=== PATIENT | male | born 1965 | race Hispanic/Latino ===

== ENCOUNTER → 2019-09-17 | Day surgery (SDC) | payer MEDICARE ==
[~2019-09-17] MED LIST: AMOXICILLIN500 MG PO; CLONIDINE HCL0.3 MG PO; EPHEDRINE SULFATE INJ 50 MG/ML VIAL ONE; FUROSEMIDE40 MG PO; FUROSEMIDE40 MG/4 ML PO; GABAPENTIN100 MG PO; LEVEMIR100 UNIT/1 SQ; LIDOCAINE HCL 2% LOCAL INJ 5 ML SDV VIAL INJ ONE; NOVOLOG100 UNIT/1 SQ; PRAVASTATIN SOD20 MG PO; PROPOFOL IV EMULSION 10 MG/ML 20 ML VIAL ONE; RENA-VITE TABL0.8 MG PO; RENVELA PO; SODIUM CHLORIDE 0.9% 500ML 500 ML ONE
[2019-09-17 10:28] LABS: BASOPHILS # (AUTO) 0.1 (0.0-0.1); BASOPHILS % 1.2 % (0.0-1.0); EOSINOPHILS # (AUTO) 0.2 (0.0-0.4); EOSINOPHILS % 1.8 % (0.0-6.0); HEMATOCRIT 37.5 % (38.2-49.6); HEMOGLOBIN 11.5 g/dL (14.0-18.0); LYMPHOCYTES # (AUTO) 1.4 (1.0-3.2); LYMPHOCYTES % 12.9 % (18.0-39.1); MEAN CORPUSCULAR HEMOGLOBIN 29.9 pg (28-32); MEAN CORPUSCULAR HGB CONC 30.7 g/dL (31-35); MEAN CORPUSCULAR VOLUME 97.7 fL (81-99); MONOCYTES # (AUTO) 0.6 (0.2-0.8); MONOCYTES % 5.1 % (4.4-11.3); NEUTROPHILS # (AUTO) 8.7 (2.1-6.9); NEUTROPHILS % 78.6 % (38.7-80.0); PLATELET COUNT 313 x10e3/uL (140-360); RED BLOOD COUNT 3.84 x10e6/uL (4.3-5.7); RED CELL DISTRIBUTION WIDTH 13.6 % (11.7-14.4)
[2019-09-17 10:44] LABS: ANION GAP 18.8 mmol/L (8-16); CALCIUM 9.8 mg/dL (8.4-10.2); CREATININE, SERUM 7.78 mg/dL (0.72-1.25); POTASSIUM 4.8 mmol/L (3.5-5.1)
[2019-09-17 10:51] LABS: INR 1.11; PROTHROMBIN TIME 14.9 seconds (11.9-14.5)
[2019-09-17 12:25] VITALS: BP 129/75
== END | disposition home or self-care (01) ==
LOC: OR 08:05
PROVIDERS: ATTEND Internal Medicine Gastroenterology
DX: Z12.11 Encounter for screening for malignant neoplasm of colon (principal); Z86.010 Personal history of colon polyps; K59.09 Other constipation; K64.8 Other hemorrhoids; K21.9 Gastro-esophageal reflux disease without esophagitis; E11.22 Type 2 diabetes mellitus with diabetic chronic kidney disease; I12.0 Hypertensive chronic kidney disease with stage 5 chronic kidney disease or end stage renal disease; N18.6 End stage renal disease; G89.29 Other chronic pain; M19.90 Unspecified osteoarthritis, unspecified site; E78.5 Hyperlipidemia, unspecified; N20.0 Calculus of kidney; Z88.6 Allergy status to analgesic agent; Z01.810 Encounter for preprocedural cardiovascular examination; Z01.812 Encounter for preprocedural laboratory examination; Z11.59 Encounter for screening for other viral diseases; Z79.4 Long term (current) use of insulin; Z79.82 Long term (current) use of aspirin; Z99.2 Dependence on renal dialysis; Z87.891 Personal history of nicotine dependence
CPT/HCPCS: 36415; 80048; 82948; 85025; 85610; 85730; 93005; G0105; J2001; J2704; J7040; U0002; 45378

== ENCOUNTER 2020-04-09 09:16 | Outpatient (RCR) | payer MEDICARE | END 2020-04-26 | LOC: WCC 09:16 | PROVIDERS: ATTEND Family Medicine Adult Medicine | DX: E11.29 Type 2 diabetes mellitus with other diabetic kidney complication (principal); E11.39 Type 2 diabetes mellitus with other diabetic ophthalmic complication; E11.65 Type 2 diabetes mellitus with hyperglycemia; H91.21 Sudden idiopathic hearing loss, right ear; H54.415A Blindness right eye category 5, normal vision left eye; I70.203 Unspecified atherosclerosis of native arteries of extremities, bilateral legs; I87.2 Venous insufficiency (chronic) (peripheral); G99.0 Autonomic neuropathy in diseases classified elsewhere; N18.6 End stage renal disease; I10 Essential (primary) hypertension; E78.2 Mixed hyperlipidemia; Z01.810 Encounter for preprocedural cardiovascular examination ==

== ENCOUNTER → 2020-04-09 | Outpatient (CLI) | payer MEDICARE ==
[~2020-04-09] MED LIST changes: -EPHEDRINE SULFATE INJ 50 MG/ML VIAL ONE; -LIDOCAINE HCL 2% LOCAL INJ 5 ML SDV VIAL INJ ONE; -PROPOFOL IV EMULSION 10 MG/ML 20 ML VIAL ONE; -SODIUM CHLORIDE 0.9% 500ML 500 ML ONE
== END ==
LOC: RAD 12:38
PROVIDERS: ATTEND Family Medicine Adult Medicine
DX: Z01.810 Encounter for preprocedural cardiovascular examination (principal)
CPT/HCPCS: 71046; 93005; 93306

== ENCOUNTER 2020-04-28 16:15 | Outpatient (RCR) | payer MEDICARE | END 2020-05-27 | LOC: WCC 16:15 | PROVIDERS: ATTEND Family Medicine Adult Medicine | DX: E11.29 Type 2 diabetes mellitus with other diabetic kidney complication (principal); E11.39 Type 2 diabetes mellitus with other diabetic ophthalmic complication; E11.65 Type 2 diabetes mellitus with hyperglycemia; I87.2 Venous insufficiency (chronic) (peripheral); I70.203 Unspecified atherosclerosis of native arteries of extremities, bilateral legs; G99.0 Autonomic neuropathy in diseases classified elsewhere; N18.6 End stage renal disease; I10 Essential (primary) hypertension; H54.415A Blindness right eye category 5, normal vision left eye; H91.21 Sudden idiopathic hearing loss, right ear; E78.2 Mixed hyperlipidemia; Z01.810 Encounter for preprocedural cardiovascular examination ==

== ENCOUNTER → 2022-08-16 | Day surgery (SDC) | payer MEDICARE, OTHER ==
[~2022-08-16] MED LIST changes: +AURYXIA210 MG PO; +BUPIVACAINE HCL 0.5% INJ 30 ML VIAL INJ ONE; +CEFAZOLIN SODIUM 2 GM ONE; +DIALYVITE 800-1 EACH PO; +EPHEDRINE SULFATE INJ 50 MG/ML VIAL ONE; +FENTANYL CITRATE/PF 100MCG/2 ML INJ ONE; +LIDOCAINE HCL 2% LOCAL INJ 5 ML SDV VIAL INJ ONE; +MIDODRINE HCL10 MG PO; +OMEPRAZOLE PO; +ONDANSETRON HCL INJ 2MG/ML 2ML 2 MG/ML VIAL ONE; +POVIDONE IODINE 0.05% 0.05 % ML PO ONE; +PROPOFOL IV EMULSION 10 MG/ML 20 ML VIAL ONE; +SENSIPAR30 MG PO; +SEVOFLURANE INHAL SOLN 250 ML PEN BTL ONE; +SODIUM BICARBONATE PO; +SODIUM CHLORIDE 0.9% 500ML 500 ML ONE
[2022-08-16 11:55] LABS: BASOPHILS # (AUTO) 0.2 (0.0-0.1); BASOPHILS % 1.5 % (0.0-1.0); EOSINOPHILS # (AUTO) 0.4 (0.0-0.4); EOSINOPHILS % 3.6 % (0.0-6.0); HEMATOCRIT 38.4 % (38.2-49.6); HEMOGLOBIN 12.7 g/dL (14.0-18.0); MEAN CORPUSCULAR HEMOGLOBIN 32.6 pg (28-32); MEAN CORPUSCULAR HGB CONC 33.1 g/dL (31-35); MEAN CORPUSCULAR VOLUME 98.7 fL (81-99); MONOCYTES # (AUTO) 0.6 (0.2-0.8); MONOCYTES % 6.4 % (4.4-11.3); NEUTROPHILS # (AUTO) 6.8 (2.1-6.9); NEUTROPHILS % 67.7 % (38.7-80.0); PLATELET COUNT 292 x10e3/uL (140-360); RED BLOOD COUNT 3.89 x10e6/uL (4.3-5.7); RED CELL DISTRIBUTION WIDTH 13.3 % (11.7-14.4)
[2022-08-16 12:23] LABS: ANION GAP 21.5 mmol/L (8-16); CALCIUM 9.4 mg/dL (8.4-10.2); CREATININE, SERUM 9.4 mg/dL (0.72-1.25); INR 1.11; POTASSIUM 4.5 mmol/L (3.5-5.1); PROTHROMBIN TIME 14.8 seconds (11.9-14.5)
[2022-08-16 12:24] LABS: PARTIAL THROMBOPLASTIN TIME 35.7 seconds (23.8-35.5)
[2022-08-16 13:55] VITALS: BP 127/85; PULSE 70; RESP 16; O2SAT 96
== END | disposition home or self-care (01) ==
LOC: OR 09:56
PROVIDERS: ATTEND Podiatrist Foot & Ankle Surgery
DX: M86.571 Other chronic hematogenous osteomyelitis, right ankle and foot (principal); L97.519 Non-pressure chronic ulcer of other part of right foot with unspecified severity; E78.5 Hyperlipidemia, unspecified; K21.9 Gastro-esophageal reflux disease without esophagitis; E11.22 Type 2 diabetes mellitus with diabetic chronic kidney disease; N18.6 End stage renal disease; F17.200 Nicotine dependence, unspecified, uncomplicated; Z99.2 Dependence on renal dialysis; Z88.6 Allergy status to analgesic agent; Z01.810 Encounter for preprocedural cardiovascular examination; Z01.818 Encounter for other preprocedural examination; Z79.4 Long term (current) use of insulin; Z79.899 Other long term (current) drug therapy
CPT/HCPCS: 15999; 28112; 36415; 71046; 80048; 82948; 85025; 85610; 85730; 93005; J2001; J2405; J2704; J3010; J7040

== ENCOUNTER 2023-10-12 17:59 | Inpatient (IN) | payer MEDICARE, MEDICAID ==
[~2023-10-12] VITALS: Ht 182.9 cm; Wt 106.8 kg
[~2023-10-12 17:59] MED LIST changes: -BUPIVACAINE HCL 0.5% INJ 30 ML VIAL INJ ONE; -CEFAZOLIN SODIUM 2 GM ONE; -EPHEDRINE SULFATE INJ 50 MG/ML VIAL ONE; -FENTANYL CITRATE/PF 100MCG/2 ML INJ ONE; -LIDOCAINE HCL 2% LOCAL INJ 5 ML SDV VIAL INJ ONE; -ONDANSETRON HCL INJ 2MG/ML 2ML 2 MG/ML VIAL ONE; -POVIDONE IODINE 0.05% 0.05 % ML PO ONE; -PROPOFOL IV EMULSION 10 MG/ML 20 ML VIAL ONE; -SEVOFLURANE INHAL SOLN 250 ML PEN BTL ONE; -SODIUM CHLORIDE 0.9% 500ML 500 ML ONE
[2023-10-12 18:35] VITALS: TEMP 99.7
[2023-10-12 18:38] LABS: BASOPHILS # (AUTO) 0.1 (0.0-0.1); BASOPHILS % 0.8 % (0.0-1.0); EOSINOPHILS % 0.1 % (0.0-6.0); HEMATOCRIT 31.2 % (38.2-49.6); HEMOGLOBIN 9.4 g/dL (14.0-18.0); LYMPHOCYTES # (AUTO) 0.5 (1.0-3.2); LYMPHOCYTES % 5.2 % (18.0-39.1); MEAN CORPUSCULAR HEMOGLOBIN 27.6 pg (28-32); MEAN CORPUSCULAR HGB CONC 30.1 g/dL (31-35); MEAN CORPUSCULAR VOLUME 91.5 fL (81-99); MONOCYTES # (AUTO) 0.5 (0.2-0.8); MONOCYTES % 5.5 % (4.4-11.3); NEUTROPHILS # (AUTO) 8.5 (2.1-6.9); NEUTROPHILS % 87.9 % (38.7-80.0); PLATELET COUNT 268 x10e3/uL (140-360); RED BLOOD COUNT 3.41 x10e6/uL (4.3-5.7); RED CELL DISTRIBUTION WIDTH 15.2 % (11.7-14.4); WHITE BLOOD COUNT 9.72 x10e3/uL (4.8-10.8)
[2023-10-12 18:47] LABS: INR 1.66; PROTHROMBIN TIME 20.4 seconds (11.9-14.5)
[2023-10-12 18:48] LABS: PARTIAL THROMBOPLASTIN TIME 39.4 seconds (23.8-35.5)
[2023-10-12 18:57] LABS: ALBUMIN 3.1 g/dL (3.5-5.0); ALBUMIN/GLOBULIN RATIO 0.7 (0.8-2.0); ANION GAP 20.3 mmol/L (8-16); BILIRUBIN,TOTAL 0.7 mg/dL (0.2-1.2); CALCIUM 8.6 mg/dL (8.4-10.2); CREATININE, SERUM 9.1 mg/dL (0.72-1.25); INFLUENZAE A&B ANTIGEN (RAPID) NEGATIVE (NEGATIVE); POTASSIUM 4.3 mmol/L (3.5-5.1); RESPIRATORY SYNC. VIRUS NEGATIVE (NEGATIVE); TOTAL PROTEIN 7.5 g/dL (6.5-8.1)
[2023-10-12] MEDS: ACETAMINOPHEN 325 MG TAB PO ONE (19:02)
[2023-10-12 19:03] LABS: TROPONIN I 0.032 ng/mL (0-0.300)
[2023-10-12] MEDS ORDERED: SODIUM CHLORIDE FLUSH 10 ML SYR INJ PRN (21:00)
[2023-10-12] MEDS ORDERED: DEXTROSE 50% SYRINGE 50 ML IV PRN (21:00)
[2023-10-12] MEDS: INSULIN REGULAR, HUMAN 100 UNIT/1 ML SQ SCH (21:00)
[2023-10-12] MEDS: IBUPROFEN 600 MG TAB PO STA (22:02)
[2023-10-12] MEDS: FUROSEMIDE INJ 10 MG/ML 4 ML VIAL IV ONE (22:17)
[2023-10-12 22:24] VITALS: PULSE 118; RESP 20; O2SAT 99
[2023-10-12 23:05] VITALS: PULSE 110; RESP 19
[2023-10-12 23:55] VITALS: BP 104/53; PULSE 100; RESP 15; TEMP 100.5; O2SAT 96
[2023-10-13] VITALS (18 sets, daily range): BP systolic 98–156; BP diastolic 39–123; PULSE 85–120; RESP 11–24; TEMP 98.2–102.4; O2SAT 93–100
[2023-10-13] MEDS: MUPIROCIN 2% OINT 22 GM TUBE TOP SCH (00:13)
[2023-10-13] MEDS ORDERED: METOPROLOL TART25 MG PO (00:19)
[2023-10-13] MEDS: ACETAMINOPHEN 325 MG TAB PO PRN (04:26)
[2023-10-13 06:16] LABS: BASOPHILS # (AUTO) 0.1 (0.0-0.1); BASOPHILS % 0.8 % (0.0-1.0); HEMATOCRIT 32.8 % (38.2-49.6); HEMOGLOBIN 9.9 g/dL (14.0-18.0); LYMPHOCYTES # (AUTO) 0.3 (1.0-3.2); LYMPHOCYTES % 2.7 % (18.0-39.1); MEAN CORPUSCULAR HEMOGLOBIN 27.7 pg (28-32); MEAN CORPUSCULAR HGB CONC 30.2 g/dL (31-35); MEAN CORPUSCULAR VOLUME 91.9 fL (81-99); MONOCYTES # (AUTO) 0.4 (0.2-0.8); MONOCYTES % 4.3 % (4.4-11.3); NEUTROPHILS # (AUTO) 9.1 (2.1-6.9); NEUTROPHILS % 91.5 % (38.7-80.0); PLATELET COUNT 244 x10e3/uL (140-360); RED BLOOD COUNT 3.57 x10e6/uL (4.3-5.7); RED CELL DISTRIBUTION WIDTH 15.2 % (11.7-14.4); WHITE BLOOD COUNT 9.92 x10e3/uL (4.8-10.8)
[2023-10-13 06:43] LABS: CREATINE KINASE 33 IU/L (30-200)
[2023-10-13 06:45] LABS: ALBUMIN 2.9 g/dL (3.5-5.0); ALBUMIN/GLOBULIN RATIO 0.6 (0.8-2.0); ANION GAP 23.1 mmol/L (8-16); BILIRUBIN,TOTAL 0.7 mg/dL (0.2-1.2); CALCIUM 8.9 mg/dL (8.4-10.2); CREATININE, SERUM 10.58 mg/dL (0.72-1.25); POTASSIUM 5.1 mmol/L (3.5-5.1); TOTAL PROTEIN 7.4 g/dL (6.5-8.1)
[2023-10-13 08:04] LABS: TROPONIN I < 0.05 ng/mL (0.0-0.40)
[2023-10-13] MEDS: LOPERAMIDE HCL 2 MG CAP PO PRN (22:17)
[2023-10-14] VITALS (15 sets, daily range): BP systolic 94–132; BP diastolic 41–82; PULSE 69–103; RESP 12–28; TEMP 97.8–100; O2SAT 96–100
[2023-10-14 04:25] LABS: TROPONIN I 0.04 ng/mL (0-0.300)
[2023-10-14 07:44] LABS: BASOPHILS # (AUTO) 0.1 (0.0-0.1); BASOPHILS % 0.8 % (0.0-1.0); EOSINOPHILS # (AUTO) 0.2 (0.0-0.4); EOSINOPHILS % 3.9 % (0.0-6.0); LYMPHOCYTES # (AUTO) 0.7 (1.0-3.2); LYMPHOCYTES % 11.8 % (18.0-39.1); MEAN CORPUSCULAR HEMOGLOBIN 27.4 pg (28-32); MEAN CORPUSCULAR VOLUME 91.5 fL (81-99); MONOCYTES # (AUTO) 0.6 (0.2-0.8); MONOCYTES % 9.8 % (4.4-11.3); NEUTROPHILS # (AUTO) 4.3 (2.1-6.9); PLATELET COUNT 210 x10e3/uL (140-360); RED BLOOD COUNT 3.28 x10e6/uL (4.3-5.7); RED CELL DISTRIBUTION WIDTH 15.4 % (11.7-14.4); WHITE BLOOD COUNT 5.91 x10e3/uL (4.8-10.8)
[2023-10-14 08:09] LABS: ANION GAP 20.8 mmol/L (8-16); CREATININE, SERUM 12.78 mg/dL (0.72-1.25); POTASSIUM 4.8 mmol/L (3.5-5.1)
[2023-10-14] MEDS: Vancomycin IV 1 GM in SODIUM CHLORIDE 0.9% 250ML 250 ML IV ONE (09:04)
[2023-10-14] MEDS ORDERED: SODIUM CHLORIDE 0.9% 1000ML 2,000 ML IV PRN (09:30)
[2023-10-14] MEDS ORDERED: ALBUMIN 25% 12.5GM 0.25 GM/ML BTL IV PRN (09:30)
[2023-10-14 13:33] LABS: BAND NEUTROPHILS % (MANUAL) 13 %; EOSINOPHILS % (MANUAL) 2 % (0-7); LYMPHOCYTES % (MANUAL) 12 % (19-48); MONOCYTES % (MANUAL) 5 % (3.4-9.0); NEUTROPHILS % (MANUAL) 68 % (40-74)
[2023-10-14 13:34] LABS: HYPOCHROMASIA SLIGHT; PLATELET ESTIMATE ADEQUATE; PLATELET MORPHOLOGY COMMENT NORMAL
[2023-10-14] MEDS: GABAPENTIN 300 MG CAP PO SCH (16:20)
[2023-10-14] MEDS: SEVELAMER CARBONATE 800 MG TAB PO SCH (16:21)
[2023-10-14] MEDS: SODIUM BICARBONATE 650 MG TAB PO SCH (17:51)
[2023-10-14] MEDS: SODIUM CHLORIDE 0.9% 1000ML 2,000 ML ONE (19:46)
[2023-10-14] MEDS: PRAVASTATIN 20 MG TAB PO SCH (20:46)
[2023-10-14] MEDS: INSULIN GLARGINE 100 UNITS/ML VIAL SQ SCH (20:48)
[2023-10-15] VITALS (8 sets, daily range): BP systolic 112–135; BP diastolic 64–75; PULSE 79–112; RESP 19–22; TEMP 98.2–99.1; O2SAT 93–96
[2023-10-15] MEDS: CINACALCET 30 MG TAB PO SCH (07:44)
[2023-10-15] MEDS: PANTOPRAZOLE SODIUM 20 MG TABLET.DR PO SCH (07:44)
[2023-10-15] MEDS: SEVELAMER CARBONATE 800 MG TAB PO SCH (07:44)
[2023-10-15] MEDS: [UNRECOGNIZED DRUG - OTHER] PO SCH (07:45)
[2023-10-15] MEDS: VIT BCOMP PO SCH (07:45)
[2023-10-15] MEDS: ZINC PO SCH (07:45)
[2023-10-15] MEDS: VITAMIN D3 PO SCH (07:45)
[2023-10-15 13:09] LABS: TROPONIN I 0.03 ng/mL (0-0.300)
[2023-10-16] VITALS (11 sets, daily range): BP systolic 110–152; BP diastolic 44–78; PULSE 68–101; RESP 18–21; TEMP 97.9–98.8; O2SAT 92–100
[2023-10-16 06:06] LABS: BASOPHILS % 0.6 % (0.0-1.0); EOSINOPHILS # (AUTO) 0.3 (0.0-0.4); EOSINOPHILS % 4.3 % (0.0-6.0); HEMATOCRIT 28.4 % (38.2-49.6); HEMOGLOBIN 8.5 g/dL (14.0-18.0); LYMPHOCYTES # (AUTO) 1.3 (1.0-3.2); LYMPHOCYTES % 18.4 % (18.0-39.1); MEAN CORPUSCULAR HEMOGLOBIN 27.3 pg (28-32); MEAN CORPUSCULAR HGB CONC 29.9 g/dL (31-35); MEAN CORPUSCULAR VOLUME 91.3 fL (81-99); MONOCYTES # (AUTO) 0.8 (0.2-0.8); NEUTROPHILS # (AUTO) 4.4 (2.1-6.9); NEUTROPHILS % 65.1 % (38.7-80.0); PLATELET COUNT 226 x10e3/uL (140-360); RED BLOOD COUNT 3.11 x10e6/uL (4.3-5.7); RED CELL DISTRIBUTION WIDTH 15.4 % (11.7-14.4); WHITE BLOOD COUNT 6.81 x10e3/uL (4.8-10.8)
[2023-10-16 06:30] LABS: ALBUMIN 2.6 g/dL (3.5-5.0); ALBUMIN/GLOBULIN RATIO 0.6 (0.8-2.0); ANION GAP 19.8 mmol/L (8-16); BILIRUBIN,TOTAL 0.5 mg/dL (0.2-1.2); CALCIUM 8.8 mg/dL (8.4-10.2); CREATININE, SERUM 10.51 mg/dL (0.72-1.25); MAGNESIUM 1.9 MG/DL (1.3-2.1); PHOSPHORUS 4.8 MG/DL (2.3-4.7); POTASSIUM 3.8 mmol/L (3.5-5.1); TOTAL PROTEIN 6.7 g/dL (6.5-8.1)
[2023-10-16 07:40] LABS: BASOPHILS % (MANUAL) 2 % (0-1.5); EOSINOPHILS % (MANUAL) 1 % (0-7); LYMPHOCYTES % (MANUAL) 20 % (19-48); METAMYELOCYTES % (MANUAL) 2 % (0-0); MONOCYTES % (MANUAL) 7 % (3.4-9.0); NEUTROPHILS % (MANUAL) 67 % (40-74); REACTIVE LYMPHOCYTES 1
[2023-10-16 07:41] LABS: HYPOCHROMASIA SLIGHT; PLATELET ESTIMATE ADEQUATE; PLATELET MORPHOLOGY COMMENT NORMAL; RBC MORPHOLOGY COMMENT NORMAL
[2023-10-16] MEDS: Vancomycin IV 500 MG in SODIUM CHLORIDE 0.9% 100 ML IV SCH (13:44)
[2023-10-16 16:54] LABS: BODY FLUID APPEARANCE TURBID; BODY FLUID COLOR RED; BODY FLUID TYPE PLEURAL
[2023-10-16 17:15] LABS: RBC,BODY FLUID 174000 cells/uL; WBC,BODY FLUID 2207 cells/uL
[2023-10-16 18:47] LABS: LYMPHOCYTES,BODY FLUID 71 %; MONO/MACROPHG,BODY FLUID 23 %; NEUTROPHILS,BODY FLUID 6 %; TOTAL CELLS COUNTED (DIFF) 100
[2023-10-17 04:00] VITALS: BP 157/81; PULSE 94; RESP 18; TEMP 98.3; O2SAT 100
[2023-10-17 06:56] VITALS: PULSE 96; RESP 20; O2SAT 96
[2023-10-17 08:00] VITALS: BP 136/76; PULSE 88; RESP 18; TEMP 97.8; O2SAT 97
[2023-10-17 11:22] VITALS: BP 144/77; PULSE 91; RESP 18; TEMP 98.2; O2SAT 96
[2023-10-17] MEDS ORDERED: LOPERAMIDE HCL 2 MG CAP PO PRN (11:45)
[2023-10-17] MEDS ORDERED: VANCOMYCIN750 MG/151 IV (14:55)
[2023-10-17] MEDS ORDERED: IMODIUM2 MG PO (14:55)
[2023-10-17] MEDS ORDERED: ACETAMINOPHEN325 M1 PO (14:55)
[2023-10-17] MEDS ORDERED: RENVELA800 MG PO (14:55)
[2023-10-19 06:43] LABS: TOTAL PROTEIN,BODY FLUID 4.7 g/dL
== END 2023-10-17 16:15 | disposition home or self-care (01) | DRG 871 ==
LOC: ER 18:17 → ERHOLD 20:54 → ICU 23:41 → MED/SURG2 10-15 08:38
PROVIDERS: ADMIT Internal Medicine; ATTEND Internal Medicine
PROC: 3E0333Z Introduction of Anti-inflammatory into Peripheral Vein, Percutaneous Approach (ICD-10-PCS; 2023-10-12)
PROC: 5A1D70Z Performance of Urinary Filtration, Intermittent, Less than 6 Hours Per Day (ICD-10-PCS; 2023-10-14)
PROC: 0W993ZZ Drainage of Right Pleural Cavity, Percutaneous Approach (ICD-10-PCS; principal; 2023-10-16)
DX: A41.02 Sepsis due to Methicillin resistant Staphylococcus aureus (principal); J18.9 Pneumonia, unspecified organism; N18.6 End stage renal disease; J90 Pleural effusion, not elsewhere classified; I12.0 Hypertensive chronic kidney disease with stage 5 chronic kidney disease or end stage renal disease; J98.11 Atelectasis; D63.1 Anemia in chronic kidney disease; E11.22 Type 2 diabetes mellitus with diabetic chronic kidney disease; E11.65 Type 2 diabetes mellitus with hyperglycemia; R09.02 Hypoxemia; I25.10 Atherosclerotic heart disease of native coronary artery without angina pectoris; E78.49 Other hyperlipidemia; Z99.2 Dependence on renal dialysis; M19.90 Unspecified osteoarthritis, unspecified site; R19.7 Diarrhea, unspecified; Z11.52 Encounter for screening for COVID-19; H54.61 Unqualified visual loss, right eye, normal vision left eye; H91.92 Unspecified hearing loss, left ear; Z79.4 Long term (current) use of insulin; Z95.1 Presence of aortocoronary bypass graft; Z89.421 Acquired absence of other right toe(s); Z88.5 Allergy status to narcotic agent; Z87.891 Personal history of nicotine dependence; Z83.3 Family history of diabetes mellitus
CPT/HCPCS: 32555; 36415; 70450; 71045; 74176; 74470; 80048; 80053; 80202; 82040; 82550; 82945; 82948; 83605; 83615; 83735; 84100; 84157; 84484; 85025; 85610; 85730; 86706; 86707; 87040; 87070; 87071; 87186; 87205; 87350; 87400; 87420; 88112; 88305; 89051; 93005; 93306; 94660; 94799; 99252; 99284; J0696; J1815; J1940; J3370; J7030; J7050; U0002

== ENCOUNTER 2024-05-13 10:49 | Emergency (ER) | payer MEDICARE, MEDICAID ==
[~2024-05-13] VITALS: Ht 182.9 cm; Wt 91.6 kg
[~2024-05-13 10:49] MED LIST changes: +ACETAMINOPHEN325 M1 PO; +IMODIUM2 MG PO; +METOPROLOL TART25 MG PO; +RENVELA800 MG PO; +VANCOMYCIN750 MG/151 IV
[2024-05-13] MEDS ORDERED: NAPROXEN250 MG PO (12:59)
[2024-05-13 13:36] VITALS: PULSE 90; RESP 18; TEMP 98.8; O2SAT 96
== END 2024-05-13 13:42 | disposition home or self-care (01) ==
LOC: ER 11:35
DX: S93.491A Sprain of other ligament of right ankle, initial encounter (principal); W10.8XXA Fall (on) (from) other stairs and steps, initial encounter; Y93.01 Activity, walking, marching and hiking; Y92.89 Other specified places as the place of occurrence of the external cause; I12.0 Hypertensive chronic kidney disease with stage 5 chronic kidney disease or end stage renal disease; E11.22 Type 2 diabetes mellitus with diabetic chronic kidney disease; N18.6 End stage renal disease; Z99.2 Dependence on renal dialysis; Z95.1 Presence of aortocoronary bypass graft
CPT/HCPCS: 99284

== ENCOUNTER 2024-05-19 14:29 | Emergency (ER) | payer MEDICARE, MEDICAID ==
[~2024-05-19] VITALS: Ht 182.9 cm; Wt 91.6 kg
[~2024-05-19 14:29] MED LIST changes: +NAPROXEN250 MG PO
[2024-05-19 14:36] VITALS: PULSE 98; RESP 16; TEMP 98
[2024-05-19] MEDS ORDERED: HYDROCODON-ACE1 EA12 PO (16:25)
[2024-05-19] MEDS ORDERED: ENDOCET 7.5-321 EACH PO (16:38)
[2024-05-19] MEDS: TRAMADOL HCL 50 MG TAB PO ONE (17:13)
[2024-05-19] MEDS: KETOROLAC TROMETHAMINE 30 MG/ML VIAL IM STA (17:13)
[2024-05-19 19:26] VITALS: BP 141/65; PULSE 74; RESP 18; TEMP 98.3; O2SAT 98
== END 2024-05-19 19:05 | disposition home or self-care (01) ==
LOC: ER 14:33
DX: M25.571 Pain in right ankle and joints of right foot (principal); S82.851A Displaced trimalleolar fracture of right lower leg, initial encounter for closed fracture; X50.1XXA Overexertion from prolonged static or awkward postures, initial encounter; Y92.89 Other specified places as the place of occurrence of the external cause; I12.0 Hypertensive chronic kidney disease with stage 5 chronic kidney disease or end stage renal disease; E11.22 Type 2 diabetes mellitus with diabetic chronic kidney disease; N18.6 End stage renal disease; Z99.2 Dependence on renal dialysis; I50.9 Heart failure, unspecified; E78.5 Hyperlipidemia, unspecified; I25.2 Old myocardial infarction; Z95.1 Presence of aortocoronary bypass graft
CPT/HCPCS: 29515; 73610; 73630; 99284; J1885